=== PATIENT | female | born 1985 | race Caucasian/White ===

== ENCOUNTER 2020-05-15 05:53 | Inpatient (IN) | payer OTHER ==
[~2020-05-15] VITALS: Ht 162.6 cm; Wt 65.8 kg
[2020-05-15 06:35] LABS: HEMOGLOBIN 13.1 gm/dl (12.3-15.3); RED BLOOD COUNT 4.39 M/UL (4.00-5.10); WHITE BLOOD COUNT 8.9 K/UL (4.5-11.0)
[2020-05-15] MEDS ORDERED: COLACE 100MG C100 MG PO (07:00)
[2020-05-15] MEDS ORDERED: IBUPROFEN600 MG PO (07:00)
[2020-05-15] MEDS ORDERED: HYDROCODON-ACE1 EAC4 PO (13:37)
[2020-05-16 06:06] LABS: HEMOGLOBIN 11.1 gm/dl (12.3-15.3)
== END 2020-05-16 15:04 | disposition home or self-care (01) | DRG 807 ==
LOC: GENOP 05:53 → OB 06:39
PROVIDERS: ADMIT Obstetrics & Gynecology
PROC: 10E0XZZ Delivery of Products of Conception, External Approach (ICD-10-PCS; principal; 2020-05-15)
PROC: 4A1HX4Z Monitoring of Products of Conception, Cardiac Electrical Activity, External Approach (ICD-10-PCS; 2020-05-15)
PROC: 0HQ9XZZ Repair Perineum Skin, External Approach (ICD-10-PCS; 2020-05-15)
DX: O70.0 First degree perineal laceration during delivery (principal); Z37.0 Single live birth; Z3A.39 39 weeks gestation of pregnancy; Z20.822 Contact with and (suspected) exposure to COVID-19
CPT/HCPCS: 36415; 85014; 85018; 85025; 90471; 90472; 90715; J2590; J3010; U0002